=== PATIENT | female | born 1970 | race Caucasian/White ===

== ENCOUNTER → 2018-05-24 | Outpatient (CLI) | payer OTHER ==
[2014-11-03 17:55] VITALS: BP 130/69
[~2018-05-24] MED LIST: LOSA1TAB25 PO
--- NOTE | 2018-05-24 17:07 | KCIC ---
Chest, 2 views, 05/24/2018: HISTORY: Cough Comparison is made to a study from 11/03/2014. The heart size and pulmonary vascularity are normal. There is minimal hazy infiltrate or scarring in the left base. The right lung is clear. There is no evidence of pleural fluid. Minimal spurring is present in the spine. IMPRESSION: Minimal left basilar infiltrate or scarring. Electronically signed by: Zen Monae MD (05/24/2018 5:04 PM) [facility]
== END | disposition home or self-care (01) ==
LOC: KCIC 14:45
PROVIDERS: ATTEND Family Medicine
DX: R05 Cough (principal); R07.81 Pleurodynia; F17.200 Nicotine dependence, unspecified, uncomplicated
CPT/HCPCS: 71046

== ENCOUNTER → 2018-05-26 | Outpatient (CLI) | payer OTHER ==
[2014-11-03 17:55] VITALS: BP 130/69
--- NOTE | 2018-05-26 15:49 | KCIC ---
Exam:Left ribs with PA chest Date: 05/26/2018 12:00 AM Comparison: No prior Indication: Twisting injury. Left rib pain Findings/ Impression: The heart is top normal in size. Mediastinal and hilar contours are normal. No focal parenchymal airspace opacity. No pleural effusion or pneumothorax. AP, Oblique and Spot images of the left ribs demonstrate a displaced left lateral 10th rib fracture. There is approximately 3 cm displacement of the fracture fragments. Electronically signed by: Antonio Perez MD (05/26/2018 3:45 PM) [id number]
== END | disposition home or self-care (01) ==
LOC: KCIC 14:55
PROVIDERS: ATTEND Family Medicine
DX: S22.32XA Fracture of one rib, left side, initial encounter for closed fracture (principal); X58.XXXA Exposure to other specified factors, initial encounter; Y93.89 Activity, other specified; Y92.89 Other specified places as the place of occurrence of the external cause; Y99.8 Other external cause status
CPT/HCPCS: 71101

== ENCOUNTER 2020-11-27 19:29 | Emergency (ER) | payer OTHER, BC ==
[~2020-11-27] VITALS: Ht 165.1 cm; Wt 111.8 kg
[2020-11-27] MEDS: MORPHINE SULFATE 4 MG/ML VIAL. IV ONE (19:45)
[2020-11-27 19:58] LABS: BASO # 0.1 x10^3/uL (0.0-0.2); BASO % 1 % (0-3); EOS # 0.3 x10^3/uL (0.0-0.7); EOS % 2 % (0-3); HEMATOCRIT 43.1 % (36.0-47.0); HEMOGLOBIN 14.6 g/dL (12.0-15.5); LYMPH # 3.4 x10^3/uL (1.0-4.8); LYMPH % 25 % (24-48); MEAN CORPUSCULAR HEMOGLOBIN 32 pg (25-35); MEAN CORPUSCULAR HGB CONC 34 g/dL (31-37); MEAN CORPUSCULAR VOLUME 95 fL (79-100); MONO # 0.8 x10^3/uL (0.0-1.1); MONO % 6 % (0-9); NEUT % 67 % (31-73); PLATELET COUNT 378 x10^3/uL (140-400); RED BLOOD COUNT 4.53 x10^6/uL (3.50-5.40); RED CELL DISTRIBUTION WIDTH 12.6 % (11.5-14.5); WHITE BLOOD COUNT 13.5 x10^3/uL (4.0-11.0)
[2020-11-27] MEDS ORDERED: HYDROmorphone 2 MG/ML VIAL ONE (20:00)
[2020-11-27] MEDS: ONDANSETRON PF 4 MG/2 ML VIAL. IVP ONE (20:03)
[2020-11-27] MEDS: IV NORMAL SALINE 1000ML BAG 1,000 ML IV SCH (20:03)
[2020-11-27] MEDS: HYDROmorphone 2 MG/ML VIAL IVP ONE ×2 (20:04→21:25)
[2020-11-27 20:06] LABS: CALCIUM 9.6 mg/dL (8.5-10.1); CREATININE 0.9 mg/dL (0.6-1.0); GFR 65.8
[2020-11-27 20:12] LABS: ALBUMIN/GLOBULIN RATIO 1.2 (1.0-1.7); TOTAL PROTEIN 7.4 g/dL (6.4-8.2)
--- NOTE | 2020-11-27 20:38 | PHYS DOC ---
Past Medical History Past Medical History: COPD, Diabetes-Type II, Hypertension Past Surgical History: Hysterectomy, Other Additional Past Surgical Histo: R ARM ORIF,FINGER AMPUTATION,ACL REPAIR Smoking Status: Former Smoker Alcohol Use: Heavy Additional Information: PATIENT REPORTS "NO ALCOHOL USE." Adult General Chief Complaint Chief Complaint: MULTIPLE COMPLAINTS [facility] HPI Patient is a 50 year old female status post a Bassem-en-Y gastric bypass on November 04 now presenting the emergency department complaint of new onset of abdominal pain. Patient states over the last 2 hours she developed worsening sensation of abdominal pain primarily left lower quadrant which also radiates the left lower quadrant. Has been associated with nausea but denies any vomiting. Patient states she had a bowel movement earlier today. Denies any recent fever, chills or injuries to the area. Review of Systems Review of Systems Constitutional: Denies fever or chills [] Eyes: Denies change in visual acuity, redness, or eye pain [] HENT: Denies nasal congestion or sore throat [] Respiratory: Denies cough or shortness of breath [] Cardiovascular: No additional information not addressed in HPI [] GI: Denies abdominal pain, nausea, vomiting, bloody stools or diarrhea [] : Denies dysuria or hematuria [] Musculoskeletal: Denies back pain or joint pain [] Integument: Denies rash or skin lesions [] Neurologic: Denies headache, focal weakness or sensory changes [] Endocrine: Denies polyuria or polydipsia [] All other systems were reviewed and found to be within normal limits, except as documented in this note. Current Medications Current Medications Current Medications Medications (Trade) Dose Ordered Sig/[facility] Start Time Stop Time Status Last Admin Dose Admin Hydromorphone HCl (Dilaudid) 1 mg 1X ONCE 11/27/20 21:30 11/27/20 21:31 11/27/20 21:25 1 MG Info (CONTRAST GIVEN -- Rx MONITORING) 1 each PRN DAILY PRN 11/27/20 21:00 11/29/20 20:59 Iohexol (Omnipaque 300 Mg/ml) 75 ml 1X ONCE 11/27/20 20:45 11/27/20 20:46 DC 11/27/20 20:49 75 ML Morphine Sulfate (Morphine Sulfate) 4 mg 1X ONCE 11/27/20 19:45 11/27/20 19:59 DC Ondansetron HCl (Zofran) 4 mg 1X ONCE 11/27/20 19:45 11/27/20 19:51 DC 11/27/20 20:03 4 MG Piperacillin Sod/ Tazobactam Sod 3.375 gm/Sodium Chloride 50 ml @ 100 mls/hr 1X ONCE 11/27/20 21:15 11/27/20 21:44 11/27/20 21:26 100 MLS/HR Sodium Chloride 1,000 ml @ 1,000 mls/hr 1X ONCE 11/27/20 21:15 11/27/20 22:14 11/27/20 21:26 1,000 MLS/HR Vancomycin HCl 1.5 gm/Sodium Chloride 500 ml @ 250 mls/hr 1X ONCE 11/27/20 21:15 11/27/20 23:14 11/27/20 21:25 250 MLS/HR Allergies Allergies Allergies Coded Allergies Type Severity Reaction Last Updated Verified morphine Allergy Intermediate 11/03/14 Yes Physical Exam Physical Exam Constitutional: Well developed, well nourished, no acute distress, non-toxic appearance. [] HENT: Normocephalic, atraumatic, bilateral external ears normal, oropharynx moist, no oral exudates, nose normal. [] Eyes: PERRLA, EOMI, conjunctiva normal, no discharge. [] Neck: Normal range of motion, no tenderness, supple, no stridor. [] Cardiovascular:Heart rate regular rhythm, no murmur [] Lungs & Thorax: Bilateral breath sounds clear to auscultation [] Abdomen: Bowel sounds normal, soft, no tenderness, no masses, no pulsatile masses. [] Skin: Warm, dry, no erythema, no rash. [] Back: No tenderness, no CVA tenderness. [] Extremities: No tenderness, no cyanosis, no clubbing, ROM intact, no edema. [] Neurologic: Alert and oriented X 3, normal motor function, normal sensory function, no focal deficits noted. [] Psychologic: Affect normal, judgement normal, mood normal. [] Current Patient Data Vital Signs Vital Signs Date Time Temp Pulse Resp B/P (MAP) Pulse Ox O2 Delivery O2 Flow Rate FiO2 11/27/20 21:25 20 Room Air 11/27/20 20:34 95 11/27/20 19:39 98.3 66 98/55 (69) 98.3 Lab Values Laboratory Tests Test 11/27/20 19:42 White Blood Count 13.5 x10^3/uL (4.0-11.0) H Red Blood Count 4.53 x10^6/uL (3.50-5.40) Hemoglobin 14.6 g/dL (12.0-15.5) Hematocrit 43.1 % (36.0-47.0) Mean Corpuscular Volume 95 fL (79-100) Mean Corpuscular Hemoglobin 32 pg (25-35) Mean Corpuscular Hemoglobin Concent 34 g/dL (31-37) Red Cell Distribution Width 12.6 % (11.5-14.5) Platelet Count 378 x10^3/uL (140-400) Neutrophils (%) (Auto) 67 % (31-73) Lymphocytes (%) (Auto) 25 % (24-48) Monocytes (%) (Auto) 6 % (0-9) Eosinophils (%) (Auto) 2 % (0-3) Basophils (%) (Auto) 1 % (0-3) Neutrophils # (Auto) 9.0 x10^3/uL (1.8-7.7) H Lymphocytes # (Auto) 3.4 x10^3/uL (1.0-4.8) Monocytes # (Auto) 0.8 x10^3/uL (0.0-1.1) Eosinophils # (Auto) 0.3 x10^3/uL (0.0-0.7) Basophils # (Auto) 0.1 x10^3/uL (0.0-0.2) Prothrombin Time 13.6 SEC (11.7-14.0) Prothrombin Time INR 1.1 (0.8-1.1) Sodium Level 142 mmol/L (136-145) Potassium Level 4.0 mmol/L (3.5-5.1) Chloride Level 104 mmol/L (98-107) Carbon Dioxide Level 24 mmol/L (21-32) Anion Gap 14 (6-14) Blood Urea Nitrogen 17 mg/dL (7-20) Creatinine 0.9 mg/dL (0.6-1.0) Estimated GFR (Cockcroft-Gault) 65.8 BUN/Creatinine Ratio 19 (6-20) Glucose Level 161 mg/dL (70-99) H Calcium Level 9.6 mg/dL (8.5-10.1) Total Bilirubin 1.0 mg/dL (0.2-1.0) Aspartate Amino Transferase (AST) 25 U/L (15-37) Alanine Aminotransferase (ALT) 54 U/L (14-59) Alkaline Phosphatase 75 U/L (46-116) Creatine Kinase 74 U/L (26-192) Total Protein 7.4 g/dL (6.4-8.2) Albumin 4.0 g/dL (3.4-5.0) Albumin/Globulin Ratio 1.2 (1.0-1.7) Lipase 184 U/L (73-393) Laboratory Tests 11/27/20 19:42 Laboratory Tests 11/27/20 19:42 EKG EKG [] Radiology/Procedures Radiology/Procedures [] Course & Med Decision Making Course & Med Decision Making Pertinent Labs and Imaging studies reviewed. (See chart for details) 6-year-old female presented emergency department with new onset of abdominal pain after recent Bassem-en-Y gastric bypass with significant tenderness in left lower quadrant left upper quadrant. Differentials at this time is broad but does include marginal ulcer, surgical leak, diverticulitis. Less likely to be acute cholecystitis or appendicitis. This time will obtain labs, provide the patient with symptomatic relief and obtain a CT scan of the abdomen pelvis with IV contrast. 2100 called by the radiologist to tell me that he feels that there is a higher than expected amount of free air around the patient's anastomotic site which raises concern for anastomotic leak. Patient continued on significant pain in the area I am concerned for free air demonstrating leak. There is no free fluid. At this time will provide the patient broad-spectrum antibiotics. I had a discussion with the patient and she is adamant that she wants to be transferred to [facility] under the surgical here care here and refused to be admitted to our hospital. We are calling now to arrange transportation. 21:27 - care graciously accepted by Dr Torres at [facility] July Disclaimer July Disclaimer This electronic medical record was generated, in whole or in part, using a voice recognition dictation system. Departure Departure Impression: Primary Impression: Anastomotic leak of intestine Disposition: 02 SHORT TERM HOSPITAL Condition: GUARDED Referrals: UNKNOWN PCP NAME (PCP) MAX LOU MD Nov 27, 2020 20:37
[2020-11-27] MEDS: IOHEXOL 300 MG/ML 100ML VIAL. IV ONE (20:49)
[2020-11-27] MEDS ORDERED: CONTRAST GIVEN. MC PRN (21:00)
--- NOTE | 2020-11-27 21:06 | RAD ---
Examination: CT of the abdomen pelvis with IV contrast HISTORY: History of left upper quadrant abdominal pain COMPARISON: None available Technique: Axial CT images of the abdomen pelvis were performed with IV contrast. Coronal sagittal re formats are performed Exposure: One or more of the following individualized dose reduction techniques were utilized for thi s examination: 1. Automated exposure control 2. Adjustment of the mA and/or kV according to patient size 3. Use of iterative reconstruction technique FINDINGS: Mild bibasilar lung atelectasis or infiltrates. Surgical changes identified in the stomach. There is moderate amount of free air identified in the ab domen, mostly about the surgical site.. Mild fat stranding identified about the stomach. The liver, s pleen, adrenals grossly appears unremarkable. The gallbladder is not identified. The small bowel is nondilated. Feces and gas in the colon. The appendix is normal. The bilateral kidneys enhance symmetrically. Urinary bladder is mildly distended. Intrauterine contraceptive device in the uterus. Moderate degenerative changes thoracolumbar spine. IMPRESSION: 1. Moderate amount of free air identified in the abdomen, about the surgical site, likely secondary to anastomotic leak/perforation and less likely postsurgical given surgery was one month. 2. Mild bibasilar lung atelectasis or infiltrates. FOR INTERNAL CODING PURPOSES Critical result: Findings discussed with ER physician at 11/27/2020 9:04 PM. RESULT CODE: (C) Electronically signed by: Jh Lubin MD (11/27/2020 9:04 PM) [id number]
[2020-11-27 21:21] LABS: PROTHROMBIN TIME PATIENT 13.6 SEC (11.7-14.0)
[2020-11-27] MEDS: VANCOMYCIN 1.5 GM in IV NORMAL SALINE 500ML BAG 500 ML IV ONE (21:25)
[2020-11-27] MEDS: PIPERACILLIN/TAZOBACTAM 3.375 GM in IV NORMAL SALINE 50ML 50 ML IV ONE (21:26)
[2020-11-27] MEDS: IV NORMAL SALINE 1000ML BAG 1,000 ML IV ONE (21:26)
[2020-11-27] MEDS: fentaNYL PF VIAL 100 MCG/2 ML VIAL IVP ONE (22:35)
[2020-11-27 22:40] VITALS: BP 118/56
--- NOTE | 2020-11-27 22:57 | EKG ---
[facility] [address] [place] [address] Test Date: 2020-11-27 Test Time: 19:35:28 Pat Name: OXANA KYLE Department: Room: Gender: F [employer]: : 1970 Requested By: MAX LOU Order Number: [id number] Reading MD: Measurements Intervals [place] Rate: 63 P: IN: QRS: 79 QRSD: 88 T: 30 QT: 390 QTc: 402 Interpretive Statements IRREGULAR RHYTHM, NO P-WAVE FOUND R-S TRANSITION ZONE IN V LEADS DISPLACED TO THE RIGHT S1,S2,S3 PATTERN QRS(T) CONTOUR ABNORMALITY CONSIDER ANTEROSEPTAL MYOCARDIAL DAMAGE POSSIBLY ABNORMAL ECG RI6.01 No previous ECG available for comparison
== END 2020-11-27 22:45 | disposition short-term general hospital (02) ==
LOC: ER 19:29
DX: K63.89 Other specified diseases of intestine (principal); R10.32 Left lower quadrant pain; R11.0 Nausea; R20.2 Paresthesia of skin; J44.9 Chronic obstructive pulmonary disease, unspecified; E11.9 Type 2 diabetes mellitus without complications; I10 Essential (primary) hypertension; F10.10 Alcohol abuse, uncomplicated; Z90.710 Acquired absence of both cervix and uterus; Z98.890 Other specified postprocedural states; Z87.891 Personal history of nicotine dependence; Z88.6 Allergy status to analgesic agent
CPT/HCPCS: 36415; 74177; 80053; 82550; 83605; 83690; 85025; 85610; 86850; 86900; 86901; 93005; 96361; 96365; 96375; 96376; 99285; J1170; J2405; J2543; J3010; J3370; J7030; J7040; Q9967